=== PATIENT | female | born 1985 | race Caucasian/White ===

== ENCOUNTER 2019-08-04 14:26 | Emergency (ER) | payer OTHER, SELFPAY ==
[2019-08-04 14:28] VITALS: BP 128/73; PULSE 36; RESP 20; TEMP 36.3; O2SAT 100
--- NOTE | 2019-08-04 14:39 | ED.URI ---
HPI - URI/Sore Throat General Chief Complaint: Chest Pain Stated Complaint: dizzy/lightheaded/sob Time Seen by Provider: 08/04/19 14:45 Source: patient and RN notes reviewed Mode of arrival: ambulatory Limitations: no limitations History of Present Illness HPI Narrative: 34 old female presents with concern for 1 week history of generalized weakness, fatigue, difficulty taking a full breath, headache, dizziness, not been able to stand very long. She difficulty taking a deep breath. She denies any significant medical history, and a family history of heart disease. She denies fever, chills, body aches, sweats. Denies rhinorrhea, nasal congestion, sore throat. Patient denies taking any recent new medications, denies ingesting any unusual substances. Reports decreased appetite. Related Data Home Medications Medication Instructions Recorded Confirmed No Home Medications 08/04/19 08/04/19 Allergies Allergy/AdvReac Type Severity Reaction Status Date / Time latex Allergy Unknown Rash Verified 08/26/16 15:23 Review of Systems Review of Systems: Narrative: CONSTITUTIONAL: Denies malaise, chills, sweats, or fever. Reports fatigue, generalized weakness EYES: Denies visual changes, redness, or discharge. ENT: Denies rhinorrhea, congestion, sinus pain, otalgia or sore throat. CARDIOVASCULAR: Denies chest pain, palpitations, or edema. RESPIRATORY: Denies cough or dyspnea. Reports difficult taking a full breath GASTROINTESTINAL: Denies abdominal pain, nausea, vomiting, diarrhea MUSCULOSKELETAL: Denies myalgia. NEUROLOGIC: Denies numbness, weakness. Reports dizziness and headache. All systems reviewed & are unremarkable except as noted in HPI and below PMFSH Family History Family History (Updated 07/03/16 @ 10:55 by DOCTOR UNKNOWN) Father Family history of alcoholism Social History Social History Smoking status: Never smoker Alcohol intake: never Comments At time of signature, agree with nursing past medical, surgical, social and family history. There is no relevant family history pertinent to the presenting complaint Exam Narrative: Exam Narrative: GENERAL: Well-appearing, well-nourished, and in no acute distress. HEAD: Normocephalic, atraumatic. EYES: PERRLA, conjunctivae clear ENT: Nares clear. Mucous membranes moist. NECK: Supple. CHEST: No respiratory distress. Clear to auscultation. No bony deformities, no asymmetry. Speaks in full sentences. HEART: Slow heart rate. No murmur heard. Normal peripheral pulses. Capillary refill less than 3 seconds ABDOMEN: Soft, nontender, nondistended, no palpable masses. SKIN: Warm, dry, no rash. NEURO: Alert and oriented x3. No focal deficits. PSYCH: Normal mood and affect Course Course Emergency Course: 1444: Patient placed on continuous BP, heart rate, O2 saturation monitoring. IV placed. Patient awake, alert, talking. Patient is aware of, understands and agrees to be transferred to emergency department. Portions of this record may have been created with voice recognition software Vital Signs Vital signs: Reviewed. Transfer Transfered to: [facility]: [facility] Transfer rationale: Bradycardia Accepting physician: Dr. Wylie Transfer comments: Patient stable at time of departure MDM - URI/Sore Throat MDM Narrative Medical decision making narrative: Patient's exam and vital signs warrant further evaluation in the emergency department patient agrees to be transferred to the emergency department via EMS ECG Data EKG #1: ECG completion date: 08/04/19 ECG completion time: 14:46 Prior ECG tracings: not available for review EKG Interpretation: bradycardia and sinus rhythm Pacemaker model: Rate 39, AR interval 187, QRS duration 92, QT 503, QTc 429 Critical Care Time Critical Care Time Critical Care Time: Yes Total Critical Care Time: 15 Discharge Plan Discharge Clinical Impression: Bradycardia Patient Dispos
--- NOTE | 2019-08-04 14:46 | ECG_ITS ---
SINUS BRADYCARDIA ABNORMAL ECG Electronically Signed On 08-04-2019 16:05:41 CDT by Reynold Powers D.O. NO PREVIOUS ECG AVAILABLE FOR COMPARISON [facility]
[2019-08-04 14:51] VITALS: BP 148/88; PULSE 39; RESP 16; O2SAT 100
[2019-08-04 15:02] VITALS: BP 151/80; PULSE 40; RESP 20; O2SAT 100
--- NOTE | 2019-08-04 15:11 | PC.NURSE ---
during triage pulse low taken to room 1 put on monitor. ekg done
== END 2019-08-04 15:02 | disposition short-term general hospital (02) ==
PROVIDERS: Emergency Provider Nurse Practitioner
DX: R00.1 Bradycardia, unspecified (principal); Z98.84 Bariatric surgery status
CPT/HCPCS: 93005; 99215; G0463

== ENCOUNTER 2019-08-04 15:20 | Observation (INO) | payer OTHER, SELFPAY ==
[2019-08-04] VITALS (9 sets, daily range): BP systolic 87–148; BP diastolic 45–95; PULSE 34–51; RESP 14–18; TEMP 36.1–36.5; O2SAT 99–100; BMI 28.0
--- NOTE | ~2019-08-04 | CT_ITS ---
EXAMINATION: CTA chest PE protocol DATE: 08/04/2019 17:15 INDICATION: Shortness of breath TECHNIQUE: Computed tomography angiography (CTA) of the chest was performed with 100 mL Omnipaque-350 intravenous contrast timed to evaluate the pulmonary arteries. Coronal maximum intensity projection 3D-reconstructions were created by the technologist. The dose-length product (DLP) was 284.51 mGy-cm. Automated exposure control and iterative reconstruction technique were employed. COMPARISON: None. FINDINGS: The pulmonary arteries are well-opacified. No pulmonary embolism is identified. The lungs a re free of acute opacities. There is no pleural effusion or pneumothorax. No pathologically enlarged thoracic lymph nodes are identified. The heart size is normal. IMPRESSION: 1. No pulmonary embolism or acute cardiopulmonary abnormality. Reviewed, dictated and finalized at location A.
--- NOTE | ~2019-08-04 | XR_ITS ---
EXAMINATION: XR chest 2V DATE: 08/04/2019 16:10 INDICATION: Bradycardia. Fatigue. Pain on inspiration. TECHNIQUE: frontal and lateral views of the chest were obtained. COMPARISON: Chest radiograph dated 05/27/2005 FINDINGS: The lungs remain clear with no focal airspace opacities, pulmonary edema, pleural effusion or pneumot horax. The cardiomediastinal silhouette is normal. Visualized bones and soft tissues are unremarkable . IMPRESSION: 1. No acute cardiopulmonary disease. Reviewed, dictated and finalized at location A.
--- NOTE | 2019-08-04 15:28 | ECG_ITS ---
Measurements Intervals [place] Rate: 34 P: 30 [place]: 172 QRS: 27 QRSD: 98 T: 29 QT: 512 QTc: 390 Interpretive Statements SINUS BRADYCARDIA ABNORMAL ECG Electronically Signed On 08-05-2019 7:15:45 CDT by Reynold Powers D.O.
--- NOTE | 2019-08-04 15:40 | ED.ARRPALP ---
HPI - Arrhythmia/Palpitations General Chief Complaint: Arrhythmia/Palpitations Stated Complaint: WEAKNESS/SB Time Seen by Provider: 08/04/19 15:26 Source: patient Mode of arrival: ambulatory Limitations: no limitations Related Data Home Medications Medication Instructions Recorded Confirmed No Home Medications 08/04/19 08/04/19 Allergies Allergy/AdvReac Type Severity Reaction Status Date / Time latex Allergy Unknown Rash Verified 08/26/16 15:23 COUNT INCLUDES THE [facility] Family History Family History (Updated 07/03/16 @ 10:55 by DOCTOR UNKNOWN) Father Family history of alcoholism Social History Social History Smoking status: Never smoker Alcohol intake: never Gender identity (if verbalized by the patient): Female Course Vital Signs Vital signs: Vital Signs Pulse Rate 34 L 08/04/19 15:27 Respiratory Rate 14 08/04/19 15:27 Blood Pressure 148/82 H 08/04/19 15:27 Pulse Oximetry 100 08/04/19 15:27 Pulse Rate 34 L 08/04/19 15:27 Respiratory Rate 14 08/04/19 15:27 Blood Pressure 148/82 H 08/04/19 15:27 Pulse Oximetry 100 08/04/19 15:27 Discharge Plan Discharge Prescriptions: No Action No Home Medications RF: 0
--- NOTE | 2019-08-04 15:48 | ED.DIZZY ---
HPI - Dizziness General Chief Complaint: Arrhythmia/Palpitations Stated Complaint: WEAKNESS/SB Time Seen by Provider: 08/04/19 15:26 Source: patient Mode of arrival: EMS Limitations: no limitations History of Present Illness HPI Narrative: A 34 y/o female presents to the ED, via EMS, with c/o dizziness. Pt states that she became dizzy and lightheaded 1 week ago and it became severe today. She notes that she was at urgent care today and was told she had a low heart rate and was sent to the ED. Pt reports fatigue, generalized weakness, SOB, and CP with deep breaths, but denies BLE edema, fever, N/V, and ABD pain. The generalized weakness is aggravated with exertion and the SOB is aggravated when lying flat. She has a PMHx of DVT and PE. MD elicited complaint: dizziness Onset (ago): week(s) (1) Timing: constant (Worsened today) Severity: severe Associated symptoms: chest pain (With deep breaths), shortness of breath, weakness (Generalized) and other (Fatigue, lightheadedness) Related Data Home Medications Medication Instructions Recorded Confirmed Adults Multivitamin 1 tab-cap PO DAILY 08/04/19 08/05/19 Allergies Allergy/AdvReac Type Severity Reaction Status Date / Time latex Allergy Intermediate Rash Verified 08/04/19 15:46 Review of Systems Review of Systems: All systems reviewed & are unremarkable except as noted in HPI and below Constitutional: Constitutional: Reports fatigue, Denies fever(s) and Reports weakness (Generalized) Cardiovascular: Cardiovascular: Reports chest pain (With deep breaths), Denies leg edema (BLE) and Reports lightheadedness Respiratory: Respiratory: Reports dyspnea Gastrointestinal: Gastrointestinal: Denies abdominal pain, Denies nausea and Denies vomiting Neurologic: Reports dizziness PMFSH Past Medical History Medical History (Updated 08/05/19 @ 13:10 by Polly Epstein MD) Anemia Asthma DVT (deep venous thrombosis) Head ache Ovarian cyst Pulmonary embolism Surgical History Surgical History (Updated 08/04/19 @ 15:46 by Michelle Harris) History of anterior cruciate ligament surgery History of gastric surgery Gastric sleeve Family History Family History Father Family history of alcoholism Social History Social History Smoking status: Never smoker Alcohol intake: never Substance use: never Gender identity (if verbalized by the patient): Female Spiritual care concerns: No Agree to blood products: Yes Exam Const: General: no acute distress and well developed Orientation/consciousness: oriented to person, oriented to place, oriented to time and patient oriented x3 HENMT: Head: normocephalic Ears: external ears normal General nose exam: Normal external nose present Eyes: General: appearance normal, both eyes and all related structures Conjunctivae: conjunctivae normal Neck: Neck: normal visual inspection and full ROM Chest: Chest palpation & inspection: normal inspection of the chest and no tenderness Resp: Effort & Inspection: normal respiratory effort Auscultation: clear to auscultation bilaterally Cardio: Rate: bradycardic Rhythm: regular rhythm GI: GI Palp: No abdominal tenderness and Yes Soft to palpation Skin: General skin exam: normal color and turgor normal Neuro: General: oriented to person, oriented to place, oriented to time and patient oriented x3 Cognition (Neuro): normal cognition Extrem: General: normal to inspection, full ROM and no pedal edema Psych: Appearance: grossly normal Mental Status: mental status grossly normal Affect: normal affect Course Consultations Consultation #1: Discussed with Dr. Johnston, who recommends admitting to IMU and have Atropine at bedside and administer atropine prn for HR < 30. Date: 08/04/19 Time: 17:14 Vital Signs Vital signs: Vital Signs Pulse Rate 34 L 08/04/19 15:27 Respiratory Rate 1
[2019-08-04 15:59] LABS: Basophils Absolute Auto 0.1 K/mm3 (0.0-0.1); Eosinophils Absolute Auto 0.2 K/mm3 (0-0.3); Hemoglobin 12.6 g/dL (12.0-15.0); Immature Granulocyte Absolute 0.01 K/mm3 (0.00-0.031); Immature Granulocyte Percent A 0.2 % (0-0.5); Lymphocytes Absolute Auto 2.01 K/mm3 (0.9-3.2); Lymphocytes Percent Auto 38.3 % (18.3-44.2); Mean Corpuscular HGB Conc 32.3 g/dl (32-36); Mean Corpuscular Volume 83.7 fl (80-100); Mean Platelet Volume 12.9 fl (7.4-10.4); Monocytes Absolute Auto 0.3 K/mm3 (0.1-0.6); Monocytes Percent Auto 5.7 % (2.6-8.5); Neutrophils Absolute Auto 2.7 K/mm3 (1.3-6.7); Neutrophils Percent Auto 51.8 % (45.5-73.1); Nucleated Red Blood Cells Perc 0.4 % (0.0-0.2); Platelet Count Result 174 k/mm3 (150-375); Red Blood Count 4.66 M/mm3 (4.2-5.4); Red Cell Distribution Width 13.7 % (11.5-14.5); White Blood Count 5.3 K/mm3 (4.5-10.0)
[2019-08-04 16:15] LABS: Blood Urea Nitrogen 14 mg/dL (7-17); Calcium 9.5 mg/dL (8.4-10.2); Carbon Dioxide 23 mmol/L (22-30); Chloride 108 mmol/L (98-107); Estimated CRCL calculation 137 ml/min; Estimated Glomerular Filt Rate > 60; Glucose 111 mg/dL (65-105); Sodium 138 mmol/L (137-145)
[2019-08-04 16:21] LABS: D Dimer 0.57 ug/mL (<0.48)
[2019-08-04 16:46] LABS: NT Pro B Type Natriuretic Pept 427 PG/ML (5-100)
[2019-08-04 16:52] LABS: Troponin I < 0.012 ng/mL (0.000-0.034)
[2019-08-04 16:56] LABS: Add Urine Microscopic? NO; Appearance Urine Clear (Clear); Bilirubin Urine Negative (Negative); Blood Urine Negative (Negative); Color Urine Colorless (Yellow); Glucose Urine UA Negative (Negative); Ketones Urine Negative (Negative); Leukocyte Esterase Ur Negative LEU/UL (Negative); Mucus Urine Rare /lpf; Nitrate Urine Negative (Negative); Protein Urine Negative (Negative); Specific Grav Ur 1.009 (1.001-1.035); Squamous Epithelial Cell Urine Rare /hpf (Few); Urobilinogen Urine Negative mg/dL (<2.0); WBC Urine 0-3 /hpf
[2019-08-04 17:50] LABS: Amphetamine Screen Urine Negative (Negative); Barbiturate Screen Urine Negative (Negative); Benzodiazepines Screen Urine Negative (Negative); Cannabinoid Screen Urine Negative (Negative); Cocaine Screen Urine Negative (Negative); Methadone Screen Urine Negative (Negative); Opiate Screen Urine Negative (Negative); Phencyclidine Screen Urine Negative (Negative)
[2019-08-04 19:50] LABS: Troponin I < 0.012 ng/mL (0.000-0.034)
--- NOTE | 2019-08-04 20:10 | ADMGEN ---
This patient, Azucena Moe, was admitted to IMU Room 200-01. Patient/family oriented to hospital policies and general routines including ID bracelet, bed and alarms, visiting hours, pain management, procedures, bathroom and other care routines, personal items, smoking policy, room service/diet, and visiting hours. Valuables list has been completed. Information on how to activate the Rapid Response Team has been discussed. Patient/Family are encouraged to report perceived risks to care and to ask questions if they do not understand what they are told or what they should do.
--- NOTE | 2019-08-04 21:43 | PC.NURSE ---
Spoke with Dr. Johnston regarding blood pressure and patient being Asymptomatic. Continue to monitor. If patient becomes symptomatic, or if blood pressure drops to an unsatisfactory level, call Dr. Johnston. PRN atropine if needed.
[2019-08-04 22:41] LABS: Troponin I < 0.012 ng/mL (0.000-0.034)
[2019-08-05] VITALS (9 sets, daily range): BP systolic 91–110; BP diastolic 40–64; PULSE 45–60; RESP 12–22; TEMP 36.3–36.9; O2SAT 100
--- NOTE | 2019-08-05 13:26 | PM.IMHP ---
H&P: HPI History of Present Illness Chief complaint: bradycardia Narrative: Azucena Moe is a 34 year old female without any prior history of cardiac problems was admitted to our service last evening after being seen in the emergency room because of bradycardia. The patient's stay works at local [employer] and was having symptoms of weakness and lightheadedness at work and so she elected to leave work and go to a local urgent care center for evaluation. When they took her vitals they found her to be bradycardic and called an ambulance and took her to the emergency room for evaluation and admission. In the emergency room she was found to be in a sinus bradycardia. All the other than sinus bradycardia her electrocardiogram was totally normal. It is important to note the patient has never had a gavin syncopal episode she denies any sense of palpitations orthopnea PND edema or any chest pain. She has been in generally good health in recent years. She did have a problem earlier in life with morbid obesity had a gastric sleeve operation done in [place] about 5 years ago and lost considerable amount of weight other than that she does not report any ongoing medical problems. Specifically T she denies hypertension diabetes or dyslipidemia. There is no family history of premature coronary artery disease. Since being admitted to the floor she has been ill in bed rest and NPO because someone made the comment that she might need a cardiac pacemaker device. Her telemetry since being on the floor shows sinus rhythm/sinus bradycardia heart rates vary between the mid 50s and as low as the high 30s. There have been no examples of abnormal AV conduction or other pathological Teddy arrhythmias. Review of Systems Review of Systems: All systems reviewed & are unremarkable except as noted in HPI and below [facility] Past Medical History Medical History (Updated 08/05/19 @ 13:10 by Polly Epstein MD) Anemia Asthma DVT (deep venous thrombosis) Head ache Ovarian cyst Pulmonary embolism Surgical History Surgical History (Updated 08/04/19 @ 15:46 by Michelle Harris) History of anterior cruciate ligament surgery History of gastric surgery Gastric sleeve Family History Family History Father Family history of alcoholism Social History Social History Smoking status: Never smoker Alcohol intake: never Substance use: never Gender identity (if verbalized by the patient): Female Spiritual care concerns: No Agree to blood products: Yes Meds Home Medications and Allergies Home Medications Medication Instructions Recorded Confirmed Type Adults Multivitamin 1 tab-cap PO DAILY 08/04/19 08/05/19 History Allergies Allergy/AdvReac Type Severity Reaction Status Date / Time latex Allergy Intermediate Rash Verified 08/04/19 15:46 Vital Signs Vital Signs - 24 hr 08/04/19 15:27 08/04/19 16:51 08/04/19 18:30 Temperature Pulse Rate 34 L 35 L 36 L Respiratory Rate 14 14 18 Blood Pressure 148/82 H 140/72 125/95 H Pulse Oximetry 100 99 100 08/04/19 19:51 08/04/19 20:00 08/04/19 20:10 Temperature 36.1 C L Pulse Rate 44 L 44 L 41 L Respiratory Rate 14 16 Blood Pressure 119/75 87/50 L Pulse Oximetry 100 100 08/04/19 20:12 08/04/19 21:28 08/04/19 22:00 Temperature 36.5 C Pulse Rate 42 L 49 L 51 L Respiratory Rate 18 Blood Pressure 125/75 99/45 L Pulse Oximetry 100 08/05/19 00:00 08/05/19 00:14 08/05/19 02:00 Temperature 36.3 C L Pulse Rate 45 L 48 L 51 L Respiratory Rate 16 Blood Pressure 108/40 L Pulse Oximetry 100 08/05/19 03:56 08/05/19 04:00 08/05/19 06:00 Temperature 36.5 C Pulse Rate 49 L 46 L 46 L Respiratory Rate 22 H Blood Pressure 96/64 L Pulse Oximetry 100 08/05/19 08:00 08/05/19 10:00 08/05/19 12:00 Temperature 36.7 C Pulse Rate 50 L 57 L 53 L Respir
--- NOTE | 2019-08-05 13:31 | PM.DS ---
DS: Summary Hospital Course Reason for hospitalization: Observation because of sinus bradycardia Hospital Course: This is a 34-year-old lady who is sent to the emergency room from an urgent care center by ambulance because of bradycardia. She presented her to that institution with some dizziness which was occurring while she was at work. She has no history of near-syncope or gavin syncope. The patient was at times rather bradycardic with heart rates in the upper 30s generally speaking sinus rhythm was seen in the hospital with heart rates in the 40s and 50s. He had no evidence of AV node dysfunction and no other arrhythmias that were noted on telemetry. Patient was felt to be a stable candidate for discharge and I did not recommend implanting a pacemaker device in her under the circumstances. She did have a mild systolic murmur on examination is suggestive of some mitral valve regurgitation and so I will arrange echocardiographic evaluation of this in the office and then follow up with me following that exam. Time Spent with Patient Time attestation: Total time spent providing and/or coordinating discharge services: Time spent: Greater than 30 minutes Exam Const: General: comfortable and no acute distress HENMT: Mouth: Yes moist mucous membranes Eyes: Sclera: sclerae normal Pupils: Equal, round and reactive pupils present Neck: Neck: supple and no JVD Thyroid: thyroid normal Resp: Effort & Inspection: normal respiratory effort Auscultation: clear to auscultation bilaterally Cardio: Rate: regular rate Rhythm: regular rhythm Other: No gallop no rub soft grade 2 systolic murmur is audible at the apex GI: GI Palp: Yes Soft to palpation Auscultation: normal bowel sounds Skin: General skin exam: normal color Neuro: General: gait normal Extrem: General: normal to inspection DS: Data Data Completed and Pending Labs on day of discharge: Labs from last 24 hours 08/04/19 08/04/19 08/04/19 22:11 19:18 17:22 WBC RBC Hgb Hct MCV MCH MCHC RDW Plt Count MPV Immature Gran % (Auto) Neut % (Auto) Lymph % (Auto) Cameron % (Auto) Eos % (Auto) Baso % (Auto) Lymph # (Auto) [place] # (Auto) Eos # (Auto) Baso # (Auto) Abs Immat Gran (auto) Absolute Neuts (auto) Absolute Nucleated RBC Nucleated RBC % D-Dimer Sodium Potassium Chloride Carbon Dioxide BUN Creatinine Estim Creat Clear Calc Estimated GFR Glucose Calcium Troponin I < 0.012 < 0.012 NT-Pro-B Natriuret Pep TSH Urine Color Urine Appearance Urine pH Ur Specific [place] Urine Protein Urine Glucose (UA) Urine Ketones Ur Blood (Man) Urine Nitrate Urine Bilirubin Urine Urobilinogen Leukocyte Esterase Rfl Urine WBC Ur Squamous Epith Cells Urine Mucus Urine Opiates Screen Negative Urine Methadone Screen Negative Ur Barbiturates Screen Negative Ur Phencyclidine Scrn Negative Ur Amphetamine Screen Negative U Benzodiazepines Scrn Negative Urine Cocaine Screen Negative U Cannabinoids Screen Negative 08/04/19 08/04/19 08/04/19 16:44 15:52 15:52 WBC RBC Hgb Hct MCV MCH MCHC RDW Plt Count MPV Immature Gran % (Auto) Neut % (Auto) Lymph % (Auto) [place] % (Auto) Eos % (Auto) Baso % (Auto) Lymph # (Auto) [place] # (Auto) Eos # (Auto) Baso # (Auto) Abs Immat Gran (auto) Absolute Neuts (auto) Absolute Nucleated RBC Nucleated RBC % D-Dimer 0.57 H Sodium Potassium Chloride Carbon Dioxide BUN Creatinine Estim Creat Clear Calc Estimated GFR Glucose Calcium Troponin I Cancelled NT-Pro-B Natriuret Pep TSH Urine Color Colorless Urine Appearance Clear Urine pH 7.0 Ur Specific [place] 1.009 Urine Protein Negative Urine Glucose (UA) Negative
== END 2019-08-05 14:31 | disposition home or self-care (01) ==
LOC: ANHED 18:16 → ANHIMU 18:48
PROVIDERS: Admitting Provider Internal Medicine Cardiovascular Disease; Emergency Provider Emergency Medicine; Visit Provider Specialist
DX: R00.1 Bradycardia, unspecified (principal); R01.1 Cardiac murmur, unspecified; R06.02 Shortness of breath; Z86.711 Personal history of pulmonary embolism; Z86.718 Personal history of other venous thrombosis and embolism; Z98.84 Bariatric surgery status
CPT/HCPCS: 36415; 71046; 71275; 80048; 80307; 81003; 81025; 83880; 84443; 84484; 85025; 85380; 93005; 99285; G0378; J0461; J7030; Q9967

== ENCOUNTER 2021-06-27 16:15 | Emergency (ER) | payer OTHER, SELFPAY ==
[2021-06-27 16:33] VITALS: BP 115/81; PULSE 64; RESP 18; TEMP 36.4; O2SAT 100
--- NOTE | 2021-06-27 16:38 | ED.SKABFB ---
HPI - Skin/Abscess/Foreign Bdy General Chief complaint: Skin/Abscess/Foreign Body Stated complaint: rash Time Seen by Provider: 06/27/21 16:38 Source: patient Mode of arrival: ambulatory Limitations: no limitations History of Present Illness HPI narrative: 36-year-old female presenting for complaint of itching and rash over her body surface for 3 days. She states she developed the rash about 15 minutes after receiving her first Covid vaccination. She has been using hydrocortisone and [id number] antihistamines with minimal relief. She denies shortness of breath, chest pain, lip/tongue/throat swelling, drooling. Denies any other changes to lotion, detergent, soap etc. MD complaint: rash Related Data Home Medications Medication Instructions Recorded Confirmed Advair HFA 06/27/21 albuterol 06/27/21 bupropion HCl 300 mg PO DAILY 06/27/21 06/27/21 Allergies Allergy/AdvReac Type Severity Reaction Status Date / Time latex Allergy Intermediate Rash Verified 06/27/21 16:38 Review of Systems Review of Systems: CONSTITUTIONAL: Denies body aches, fever, chills, or sweats. EYES: Denies visual changes, redness, or discharge. ENT: Denies rhinorrhea, congestion, sore throat, or otalgia. CARDIOVASCULAR: Denies chest pain, palpitations, or edema. RESPIRATORY: Denies cough or dyspnea. GASTROINTESTINAL: Denies abdominal pain, nausea, vomiting, or diarrhea. GENITOURINARY: Denies dysuria or hematuria. SKIN: endorses rash, itching MUSCULOSKELETAL: Denies back pain, joint pain, or myalgia. NEUROLOGIC: Denies headache, numbness, tingling, or weakness. PSYCH: Denies depression or anxiety. [facility] Past Medical History Medical History (Updated 06/27/21 @ 16:41 by Madison Vargas APRN) Anemia Asthma DVT (deep venous thrombosis) Head ache Ovarian cyst Pulmonary embolism Surgical History Surgical History History of anterior cruciate ligament surgery History of gastric surgery Gastric sleeve Family History Family History Father Family history of alcoholism Social History Social History Smoking status: Never smoker Alcohol intake: never Substance use: never Gender identity (if verbalized by the patient): Female Spiritual care concerns: No Agree to blood products: Yes Comments At time of signature, I have reviewed and agree with nursing past medical, surgical, social and family history unless otherwise noted. Please see nursing chart for further information. There is no relevant family history pertinent to the presenting complaint Exam Narrative: GENERAL: Well-appearing, well-nourished, and in no acute distress. HEAD: Normocephalic, atraumatic. EYES: PERRLA, conjunctivae clear, and EOMI. ENT: Mucous membranes moist. Oropharynx without edema, erythema or lesions. NECK: Supple. No lymphadenopathy CHEST: Clear to auscultation. No respiratory distress. HEART: Regular rate and rhythm. SKIN: Warm, dry. Scattered Patches of erythematous circular lesions c/w urticaria over trunk and arms, surrounding excoriation from scratching; no lip/tongue swelling NEURO: Alert and oriented x3. PSYCH: Normal mood and affect Course Course Emergency Course: Patient is aware of diagnosis, understands and agrees to treatment plan. Anticipatory guidance given. Patient agrees to follow-up as directed and is aware of reasons to seek care at the emergency department. Portions of this record may have been created with voice recognition software Level of Care: Express Care Visit Vital Signs Vital signs: Vital Signs Temperature 97.6 F 06/27/21 16:33 Pulse Rate 64 06/27/21 16:33 Respiratory Rate 18 06/27/21 16:33 Blood Pressure 115/81 06/27/21 16:33 Pulse Oximetry 100 06/27/21 16:33 Temperature 97.6 F 06/27/21 16:33 Pulse R
== END 2021-06-27 16:45 | disposition home or self-care (01) ==
PROVIDERS: Emergency Provider Nurse Practitioner Family; PCP Physician Assistant
DX: L50.9 Urticaria, unspecified (principal); J45.909 Unspecified asthma, uncomplicated; Z86.718 Personal history of other venous thrombosis and embolism; Z86.711 Personal history of pulmonary embolism; Z98.84 Bariatric surgery status
CPT/HCPCS: 99213; G0463

== ENCOUNTER 2022-02-06 17:09 | Emergency (ER) | payer BC, SELFPAY ==
[2022-02-06 17:19] VITALS: BP 104/54; PULSE 57; RESP 18; TEMP 36.4; O2SAT 100
[2022-02-06 17:20] VITALS: BP 104/54; PULSE 57; RESP 18; TEMP 36.4; O2SAT 100
--- NOTE | 2022-02-06 17:22 | ED.SKABFB ---
HPI - Skin/Abscess/Foreign Bdy General Chief complaint: Skin/Abscess/Foreign Body Stated complaint: rash Time Seen by Provider: 02/06/22 17:23 Source: patient, RN notes reviewed and old records reviewed Mode of arrival: ambulatory Limitations: no limitations History of Present Illness HPI narrative: 36-year-old female presents to the [facility] with complaints of a rash to her back, posterior legs and abdomen. Patient states that started the night she got her flu shot, January 27 Having a similar reaction to when she had her COVID shot several months ago. Patient denies any breathing difficulties. No lip or tongue swelling. Has tried oatmeal baths, Benadryl with no relief. Also has tried hydrocortisone cream Related Data Home Medications Medication Instructions Recorded Confirmed bupropion HCl 300 mg 24 hr tablet, 300 mg PO DAILY 06/27/21 02/06/22 extended release Allergies Allergy/AdvReac Type Severity Reaction Status Date / Time latex Allergy Intermediate Rash Verified 02/06/22 17:18 ferumoxytol [From Feraheme] AdvReac Severe Stopped Verified 02/06/22 17:49 Breathing Review of Systems Review of Systems: All systems reviewed & are unremarkable except as noted in HPI and below Constitutional: Constitutional: Reports no additional constitutional complaints, Denies chills and Denies fever(s) Eyes: Eyes: Reports no additional eye complaints ENT: Reports system reviewed and no additional complaints, except as documented Cardiovascular: Cardiovascular: Reports no additional cardiovascular complaints Respiratory: Respiratory: Reports no additional respiratory complaints Gastrointestinal: Gastrointestinal: Reports no additional gastrointestinal complaints Musculoskeletal: Musculoskeletal: Reports no additional musculoskeletal complaints Integumentary/Breasts: Skin/Breast: Reports as per HPI and Reports rash Neurologic: Reports system reviewed and no additional complaints, except as documented Psychiatric: Psychiatric: Reports no additional psychiatric complaints Allergic/Immunologic: Allergic/Immunologic: Reports no additional allergic/immunologic complaints [facility] Past Medical History Medical History Anemia Asthma DVT (deep venous thrombosis) Head ache Ovarian cyst Pulmonary embolism Surgical History Surgical History History of anterior cruciate ligament surgery History of gastric surgery Gastric sleeve Family History Family History Father Family history of alcoholism Social History Social History Smoking status: Never smoker Alcohol intake: never Substance use: never Gender identity (if verbalized by the patient): Female Spiritual care concerns: No Agree to blood products: Yes Comments At the time of my signature, I reviewed and agree with the nursing past medical, surgical, social, and family history. There is no relevant family history pertinent to the patient complaint. Exam Const: General: healthy appearing, no acute distress and alert Nutritional Appearance: well nourished Orientation/consciousness: patient oriented x3 Limitations: no limitations HENMT: Head: normal to inspection Ears: external ears normal General nose exam: Normal external nose present and Normal nares present Face and sinus: normal facial exam Mouth: Yes Normal oral and palatal mucosa present, Yes lip normal and Yes moist mucous membranes Throat: posterior oropharynx normal and uvula midline Eyes: General: appearance normal, both eyes and all related structures Pupils: Equal, round and reactive pupils present Neck: Neck: normal visual inspection, no lymphadenopathy and no meningeal signs Chest: Chest palpation & inspection: normal inspection of the chest Resp: Effor
== END 2022-02-06 17:30 | disposition home or self-care (01) ==
PROVIDERS: Emergency Provider Nurse Practitioner; PCP Physician Assistant
DX: L50.9 Urticaria, unspecified (principal)
CPT/HCPCS: 99213; G0463

== ENCOUNTER 2023-01-29 18:02 | Emergency (ER) | payer BC, SELFPAY | END 2023-01-29 18:03 | disposition left against medical advice (07) | PROVIDERS: Emergency Provider Nurse Practitioner Family | DX: Z53.21 Procedure and treatment not carried out due to patient leaving prior to being seen by health care provider (principal) | CPT/HCPCS: 99199 ==

== ENCOUNTER → 2023-01-31 08:59 | Outpatient (CLI) | payer BC, SELFPAY ==
--- NOTE | ~2023-01-31 | US_ITS ---
US OB transvaginal DATE: 01/31/2023 09:24 INDICATION: confirmation TECHNIQUE: Transvaginal pelvic ultrasound examination COMPARISON: None FINDINGS: Live king intrauterine gestation. pole and yolk sac are identified. heart rate of 133 bpm. Citrus-rump length measures 0.79 cm consistent with estimated gestational age of 6 we eks 5 days +/- 4 days, PRIMO of 09/21/2023, compared to 09/2023 by LMP. IMPRESSION: Estimated gestational age of 6 weeks 5 days +/- 4 days; PRIMO: 09/21/2023 Reviewed, dictated and finalized at [facility]. Reviewed, dictated and finalized at [facility]. IMPRESSION: Estimated gestational age of 6 weeks 5 days +/- 4 days; PRIMO: 09/21/19 24
== END ==
PROVIDERS: PCP Physician Assistant
DX: Z32.01 Encounter for pregnancy test, result positive (principal)
CPT/HCPCS: 76817

== ENCOUNTER 2023-02-11 17:24 | Emergency (ER) | payer BC, MEDICAID, SELFPAY ==
[2023-02-11 17:30] VITALS: BP 117/69; PULSE 66; RESP 18; TEMP 36.1; O2SAT 100
[2023-02-11] MEDS: SODIUM CHLORIDE 0.9% IV 1,000 ML 999 ML IV CONT ×2 (18:48→19:51)
[2023-02-11] MEDS: METOCLOPRAMIDE HCL INJ 10 MG/2 ML VIAL IV PUSH (18:53)
--- NOTE | 2023-02-11 19:06 | ED.NAVMDI ---
HPI - Nausea/Vomiting/Diarrhea General Chief complaint: Nausea/Vomiting/Diarrhea Stated complaint: - N/V Time Seen by Provider: 02/11/23 17:41 Source: patient Mode of arrival: ambulatory Limitations: no limitations History of Present Illness HPI Narrative: Patient is a 37 y/o female who presents to the ED with c/o N/V. Patient is and currently 8weeks gestation via IVF. She has had confirmed IUP and is currently following with a fertility clinic in [place]. She plans to follow-up with [facility] with [facility]. Patient reports she has been feeling increasingly nauseous over the last 3 weeks. Since last , she has been unable to keep down any food or drink. Reporting persistent vomiting. She was prescribed Zofran and Reglan, but has been unable to keep these down. She denies fevers, abdominal pain, vaginal bleeding, leakage of fluid, urinary complaints, diarrhea, constipation, cough or cold symptoms. Related Data Home Medications Medication Instructions Recorded Confirmed bupropion HCl 300 mg 24 hr tablet, 300 mg PO DAILY 06/27/21 02/06/22 extended release Allergies Allergy/AdvReac Type Severity Reaction Status Date / Time latex Allergy Intermediate Rash Verified 02/06/22 17:18 ferumoxytol [From Feraheme] AdvReac Severe Stopped Verified 02/06/22 17:49 Breathing Review of Systems Review of Systems: CONSTITUTIONAL: Denies fever, chills, or sweats. ENT: Denies rhinorrhea, congestion, sore throat. CARDIOVASCULAR: Denies chest pain. RESPIRATORY: Denies cough or dyspnea. GASTROINTESTINAL: See HPI. GENITOURINARY: Denies vaginal bleeding, dysuria or hematuria. SKIN: Denies rash or itching. MUSCULOSKELETAL: Denies back pain, joint pain, or myalgia. All systems reviewed & are unremarkable except as noted in HPI and below PMFSH Past Medical History Medical History Anemia Asthma DVT (deep venous thrombosis) Head ache Ovarian cyst Pulmonary embolism Surgical History Surgical History History of anterior cruciate ligament surgery History of gastric surgery Gastric sleeve Family History Family History Father Family history of alcoholism Social History Social History Smoking status: Never smoker Alcohol intake: never Substance use: never Gender identity (if verbalized by the patient): Female Spiritual care concerns: No Agree to blood products: Yes Exam Narrative: GENERAL: Well appearing, well-nourished, non-toxic, in no acute distress. HEAD: Normocephalic, atraumatic. NECK: Supple. No adenopathy, no masses. RESPIRATORY: Airway patent, respirations nonlabored. Clear to auscultation bilaterally, no rales, rhonchi, wheezing. CARDIOVASCULAR: Regular rate and rhythm without murmurs, rubs, or gallops. Radial pulses 2+ and equal bilaterally. ABDOMINAL: Soft, no tenderness throughout abdomen, nondistended, no hepatosplenomegaly. Normoactive BS. MUSCULOSKELETAL: Moves all extremities. Strength/ROM intact without gross deformities. SKIN: Warm, dry, normal color. No rashes. NEURO: A&O X3. Speech clear. Cranial nerves II-XII grossly intact. Steady gait. No ataxic movements. PSYCHIATRIC: Appropriate mood and affect. Normal interaction. Course Vital Signs Vital signs: Vital Signs Temperature 96.9 F L 02/11/23 17:30 Pulse Rate 66 02/11/23 17:30 Respiratory Rate 18 02/11/23 17:30 Blood Pressure 117/69 02/11/23 17:30 Pulse Oximetry 100 02/11/23 17:30 Oxygen Delivery Room Air 02/11/23 17:30 Temperature 96.9 F L 02/11/23 17:30 Pulse Rate 66 02/11/23 17:30 Respiratory Rate 18 02/11/23 17:30 Blood Pressure 117/69 02/11/23 17:30 Pulse Oximetry 100 02/11/23 17:30 Oxygen Delivery Samia
[2023-02-11 19:07] LABS: Basophils Percent Auto 0.4 % (0.2-1.2); Eosinophils Absolute Auto 0.1 K/mm3 (0-0.3); Eosinophils Percent Auto 1.1 % (0-4.4); Hematocrit 39.1 % (37.0-47.0); Immature Granulocyte Absolute 0.01 K/mm3 (0.00-0.031); Immature Granulocyte Percent A 0.2 % (0-0.5); Lymphocytes Absolute Auto 2.12 K/mm3 (0.9-3.2); Lymphocytes Percent Auto 39.6 % (18.3-44.2); Mean Corpuscular HGB Conc 33.2 g/dl (32-36); Mean Corpuscular Volume 87.3 fl (80-100); Mean Platelet Volume 12.1 fl (7.4-10.4); Monocytes Absolute Auto 0.4 K/mm3 (0.1-0.6); Monocytes Percent Auto 7.7 % (2.6-8.5); Neutrophils Absolute Auto 2.7 K/mm3 (1.3-6.7); Platelet Count Result 159 k/mm3 (150-375); Red Blood Count 4.48 M/mm3 (4.2-5.4); Red Cell Distribution Width 13.1 % (11.5-14.5); White Blood Count 5.4 K/mm3 (4.5-10.0)
[2023-02-11 19:22] LABS: Alanine Aminotransferase 14 U/L (6-35); Albumin Level 3.7 g/dL (3.5-5.1); Alkaline Phosphatase 36 U/L (38-126); Anion Gap 6 mmol/L (8-16); Aspartate Amino Transferase 21 U/L (14-36); Bilirubin,Total 0.5 mg/dL (0.2-1.3); Blood Urea Nitrogen 14 mg/dL (7-17); Calcium 8.6 mg/dL (8.4-10.2); Carbon Dioxide 19 mmol/L (22-30); Chloride 109 mmol/L (98-107); Estimated CRCL calculation 135 ml/min; Estimated Glomerular Filt Rate > 60; Glucose 81 mg/dL (65-110); Lipase 76 U/L (23-300); Potassium 4.5 mmol/L (3.4-5.0); Sodium 134 mmol/L (137-145)
[2023-02-11 20:43] LABS: Appearance Urine Clear (Clear); Bilirubin Urine Negative (Negative); Blood Urine Negative (Negative); Color Urine Yellow (Yellow); Glucose Urine UA 1+ mg/dL (Negative); Ketones Urine 2+ mg/dL (Negative); Leukocyte Esterase Ur Negative LEU/UL (Negative); Nitrate Urine Negative (Negative); Protein Urine Negative (Negative); Specific Grav Ur 1.024 (1.001-1.035); Urobilinogen Urine 0.2 mg/dL (<2.0); pH Urine 5.5 (5.0-9.0)
[2023-02-11 20:48] LABS: Add Urine Microscopic? NO
[2023-02-11 22:43] VITALS: BP 122/78; PULSE 77; RESP 14; TEMP 36.9; O2SAT 98
== END 2023-02-11 22:45 | disposition home or self-care (01) ==
PROVIDERS: Emergency Provider Physician Assistant; PCP Physician Assistant
DX: O21.9 Vomiting of pregnancy, unspecified (principal); O99.281 Endocrine, nutritional and metabolic diseases complicating pregnancy, first trimester; E86.0 Dehydration; O99.511 Diseases of the respiratory system complicating pregnancy, first trimester; J45.909 Unspecified asthma, uncomplicated; O99.841 Bariatric surgery status complicating pregnancy, first trimester; Z86.718 Personal history of other venous thrombosis and embolism; Z86.711 Personal history of pulmonary embolism; Z86.2 Personal history of diseases of the blood and blood-forming organs and certain disorders involving the immune mechanism; Z3A.08 8 weeks gestation of pregnancy
CPT/HCPCS: 36415; 80053; 81003; 83690; 83735; 85025; 96361; 96374; 99284; J2765; J7030

== ENCOUNTER 2023-09-26 09:30 | Emergency (ER) | payer BC, MEDICAID, SELFPAY ==
[2023-09-26 09:44] VITALS: BP 120/65; PULSE 64; RESP 16; TEMP 36.2; O2SAT 100
[2023-09-26 09:46] VITALS: BP 120/65; PULSE 64; RESP 16; TEMP 36.2; O2SAT 100
--- NOTE | 2023-09-26 10:08 | ED.SKABFB ---
HPI - Skin/Abscess/Foreign Bdy General Chief complaint: Skin/Abscess/Foreign Body Stated complaint: rash Source: patient Mode of arrival: ambulatory Limitations: no limitations History of Present Illness HPI narrative: 38-year-old female presents to [facility] with complaints of burning, itchy flesh-colored fluid-filled rash to bilateral hands and feet for the past 5 days. Patient reports that she had a baby 2 weeks ago is currently . Patient denies history of skin allergies but reports that she has very sensitive skin. Patient has been applying [id number] hydrocortisone cream with little relief. Patient denies fever, body aches, chills, nausea vomiting or diarrhea. Patient denies erythema, purulent drainage, bleeding or bruising. MD complaint: rash Location: L hand, R hand, L foot and R foot Quality: burning and pruritic Relieving factors: none Exacerbating factors: none Context: none Associated symptoms: denies other symptoms Treatments prior to arrival: OTC topical medication Related Data Home Medications Medication Instructions Recorded Confirmed cholecalciferol (vitamin D3) 10 10 mcg PO DAILY 09/26/23 09/26/23 mcg (400 unit) chewable tablet enoxaparin 40 mg/0.4 mL mg 09/26/23 subcutaneous syringe ferrous sulfate 325 mg (65 mg 325 mg PO DAILY 09/26/23 09/26/23 iron) tablet vits 75-iron 28 mg-folic pkg PO 09/26/23 acid 800 mcg-omega3 440 mg oral pack Allergies Allergy/AdvReac Type Severity Reaction Status Date / Time latex Allergy Intermediate Rash Verified 09/26/23 09:45 adhesive tape Allergy Rash Verified 09/26/23 09:45 ferumoxytol [From Feraheme] AdvReac Severe Stopped Verified 09/26/23 09:45 Breathing Review of Systems Constitutional: Constitutional: Denies fatigue, Denies fever(s) and Denies weakness ENT: Denies vertigo and Denies dizziness Cardiovascular: Cardiovascular: Denies chest pain Respiratory: Respiratory: Denies cough, Denies dyspnea and Denies wheezing Gastrointestinal: Gastrointestinal: Denies diarrhea, Denies nausea and Denies vomiting Musculoskeletal: Musculoskeletal: Denies arthralgias, Denies joint swelling and Denies muscle cramps Integumentary/Breasts: Skin/Breast: Reports pruritus, Denies erythema, Reports rash and Denies skin ulcer Neurologic: Denies vertigo, Denies dizziness and Denies syncope PMFSH Past Medical History Medical History Anemia Asthma DVT (deep venous thrombosis) Head ache Ovarian cyst Pulmonary embolism Surgical History Surgical History History of anterior cruciate ligament surgery History of gastric surgery Gastric sleeve Family History Family History Father Family history of alcoholism Social History Social History Smoking status: Never smoker Alcohol intake: never Substance use: never Gender identity (if verbalized by the patient): Female Spiritual care concerns: No Agree to blood products: Yes Comments At time of signature, I agree with nursing past medical, surgical, social and family history. There is no relevant family history pertinent to the presenting complaint. Exam Const: General: healthy appearing and no acute distress Nutritional Appearance: well nourished Orientation/consciousness: patient oriented x3 Limitations: no limitations HENMT: Head: normal to inspection Throat: posterior oropharynx normal and uvula midline Eyes: Conjunctivae: conjunctivae normal Neck: Neck: normal visual inspection Resp: Effort & Inspection: normal respiratory effort and not labored Auscultation: clear to auscultation bilaterally, no crackles, no rales and no rhonchi Cardio: Rate: regular rate Rhythm: regular rhythm Skin: General skin exam: normal color
== END 2023-09-26 10:18 | disposition home or self-care (01) ==
PROVIDERS: Emergency Provider Nurse Practitioner Family; PCP Physician Assistant
DX: L30.1 Dyshidrosis [pompholyx] (principal); J45.909 Unspecified asthma, uncomplicated; Z86.718 Personal history of other venous thrombosis and embolism; Z86.711 Personal history of pulmonary embolism
CPT/HCPCS: 99213; G0463

== ENCOUNTER 2023-10-25 11:13 | Emergency (ER) | payer BC, SELFPAY ==
[2023-10-25 11:22] VITALS: BP 111/49; PULSE 57; RESP 18; TEMP 36.3; O2SAT 100
[2023-10-25 11:26] VITALS: BP 111/49; PULSE 57; RESP 18; TEMP 36.3; O2SAT 100
--- NOTE | 2023-10-25 11:27 | ED.SKABFB ---
HPI - Skin/Abscess/Foreign Bdy General Chief complaint: Skin/Abscess/Foreign Body Stated complaint: rash Time Seen by Provider: 10/25/23 11:28 Source: patient, RN notes reviewed and old records reviewed Mode of arrival: ambulatory Limitations: no limitations History of Present Illness HPI narrative: 38-year-old year old female presents to the [facility] with complaints of a rash to her abdomen, chest. Has a history of hives. States she has been trying to use strain send cream with no relief. Describes is being very itchy. Patient denies any new creams, ointments, lotions, detergents. Patient is breast feeding Onset (ago): day(s) (5) Related Data Home Medications Medication Instructions Recorded Confirmed cholecalciferol (vitamin D3) 10 10 mcg PO DAILY 09/26/23 09/26/23 mcg (400 unit) chewable tablet enoxaparin 40 mg/0.4 mL mg 09/26/23 subcutaneous syringe ferrous sulfate 325 mg (65 mg 325 mg PO DAILY 09/26/23 09/26/23 iron) tablet vits 75-iron 28 mg-folic pkg PO 09/26/23 acid 800 mcg-omega3 440 mg oral pack Allergies Allergy/AdvReac Type Severity Reaction Status Date / Time ferumoxytol [From Feraheme] Allergy Severe Stopped Verified 10/25/23 11:25 Breathing latex Allergy Intermediate Rash Verified 10/25/23 11:25 adhesive tape Allergy Rash Verified 10/25/23 11:25 Review of Systems Review of Systems: All systems reviewed & are unremarkable except as noted in HPI and below Constitutional: Constitutional: Reports no additional constitutional complaints Eyes: Eyes: Reports no additional eye complaints ENT: Reports system reviewed and no additional complaints, except as documented Cardiovascular: Cardiovascular: Reports no additional cardiovascular complaints, Denies chest pain and Denies dyspnea Respiratory: Respiratory: Reports no additional respiratory complaints, Denies chest congestion, Denies cough and Denies dyspnea Gastrointestinal: Gastrointestinal: Reports no additional gastrointestinal complaints, Denies abdominal pain, Denies nausea and Denies vomiting Musculoskeletal: Musculoskeletal: Reports no additional musculoskeletal complaints Integumentary/Breasts: Skin/Breast: Reports as per HPI and Reports rash Neurologic: Reports system reviewed and no additional complaints, except as documented Psychiatric: Psychiatric: Reports no additional psychiatric complaints Allergic/Immunologic: Allergic/Immunologic: Reports no additional allergic/immunologic complaints PMFSH Past Medical History Medical History Anemia Asthma DVT (deep venous thrombosis) Head ache Ovarian cyst Pulmonary embolism Surgical History Surgical History History of anterior cruciate ligament surgery History of gastric surgery Gastric sleeve Family History Family History Father Family history of alcoholism Social History Social History Smoking status: Never smoker Alcohol intake: never Substance use: never Gender identity (if verbalized by the patient): Female Spiritual care concerns: No Agree to blood products: Yes Comments At the time of my signature, I reviewed and agree with the nursing past medical, surgical, social, and family history. There is no relevant family history pertinent to the patient complaint. Exam Const: General: cooperative, healthy appearing, comfortable, no acute distress, well developed, alert and well nourished Nutritional Appearance: well nourished Orientation/consciousness: patient oriented x3 Limitations: no limitations HENMT: Head: normal to inspection Ears: hearing grossly normal bilaterally and external ears normal Face/Nose/Sinus: Normal external nose present, Normal nares present, Normal nasal mucous membranes and turbinates
== END 2023-10-25 11:44 | disposition home or self-care (01) ==
PROVIDERS: Emergency Provider Nurse Practitioner; PCP Physician Assistant
DX: L50.9 Urticaria, unspecified (principal); J45.909 Unspecified asthma, uncomplicated; Z86.718 Personal history of other venous thrombosis and embolism; Z86.711 Personal history of pulmonary embolism; D64.9 Anemia, unspecified
CPT/HCPCS: 99213; G0463

== ENCOUNTER 2023-11-17 11:29 | Outpatient (CLI) | payer BC, SELFPAY ==
--- NOTE | 2023-11-17 12:25 | PC.NURSE ---
In- 1135 Out- 1225 Reason for visit: has been diagnosed with failure to thrive, had an 8 day stay in [facility] and was not able to attempt during that time and now refuses the breast; mother desires pump flange fitting History: Mother was high risk during her for a clotting disorder; at delivery she had 'two 4th degree tears' that required surgical intervention and general anesthesia and a hemorrhage requiring a blood transfusion; mother states she did not get to see her for many hours after her surgery; when she did begin , infant was going to breast exclusively with one supplementation bottle in the hospital and exclusive at home; mother states it did take 3 weeks for her milk to come in and now has a consistent supply Infant History: was having little to no weight gain (only 4g gain at one ICP visit) and eventually was found to have lost 18% of her weight and was admitted to [facility] with a failure to thrive diagnosis; mother states she believed was feeding well at the breast as she was suckling for 15-20 minutes and then falling asleep, but eventually became very lethargic and wasn't even able to breastfeed; after 8 days in the hospital, had gained weight for 2 days in a row (15g one day and 20g the next day per mom) and was then discharged from the hospital; mother states she felt like she did not receive any help because they did not want the to burn any calories trying to breastfeed, they did tell mom that infant could try to go to breast if she has eaten her 6 prescribed fortified bottles; mom is fortifying her pumped breastmilk with formula as prescribed by her physician; is have about 4-5 wet diapers daily and only one stool every 5 days, stools have been very mucousy, green/yellow and watery; mother states that Dr. Waite is aware and says this may be normal, but has referred baby to GI at [facility] Observations: was fussy and hungry when they arrived; mother appropriately applied her nipple shield and positioned to latch; was very fussy and inconsolable as we tried to latch; mother states is this fussy most of the day, not even seeming calm or satisfied right after feedings; mother feels infant may be exhibiting signs of pain; mother states that in the hospital, they did not seem to be concerned about spitting up (as soon as she is laid flat after the feeding, mother states it is projectile and seems to be the entire feeding) or the fussiness/inconsolability of baby; Dr. Waite has seen baby and prescribed pepcid for reflux and has referred to the GI specialist at [facility]; mother states infant has had an upper GI and they found that baby has a tight and slow emptying pyloric sphincter; we were not able to latch , despite repeated attempts, trying to calm before offering the breast, trying to give the bottle and then switch to the nipple shield, and trying to latch after she was finished with her bottle; took 3 ounces of pumped breastmilk and did not spit up during the appointment, she did continue to fuss off and on and suck on her pacifier while mom was pumping Assisted mother to use her Spectra pump, she has been pumping 3-4 ounces at a time (usually 20 minutes per session); mother has been using the 17mm flange size, but has been experimenting with different sizes and states that they all hurt ; fitted mom for a 24mm flange and encouraged good nipple care after each pumping session; mother states after the initial few minutes with the pump, the pain dissipates; encouraged mother to continue with the 24mm flanges for a few pumping sessions to see if she notices improvement with her nipple pain; mother did pump 5 ounces which was more than her usual 3 ounces with the 17mm flanges and she was encouraged that
== END 2023-11-17 11:30 | disposition home or self-care (01) ==
LOC: ANHOBOP 11:30
PROVIDERS: PCP Physician Assistant; Visit Provider Pediatrics
DX: Z39.1 Encounter for care and examination of lactating mother (principal)
CPT/HCPCS: 99202; G0463

== ENCOUNTER 2024-02-02 08:05 | Emergency (ER) | payer BC, SELFPAY ==
[2024-02-02 08:17] VITALS: BP 107/49; PULSE 66; RESP 16; TEMP 36.2; O2SAT 100
[2024-02-02 08:19] VITALS: BP 107/49; PULSE 66; RESP 16; TEMP 36.2; O2SAT 100
--- NOTE | 2024-02-02 08:19 | ED.SKABFB ---
HPI - Skin/Abscess/Foreign Bdy General Chief complaint: Skin/Abscess/Foreign Body Stated complaint: rash Source: patient Mode of arrival: ambulatory Limitations: no limitations History of Present Illness HPI narrative: 38-year-old female presented for complaint of an itchy red rash to the left upper arm for 2 weeks. Since then she has been seen by basin tender, vocal music instructor, PCP, and Urgent Care, has tried multiple steroid creams, oral steroids, and started on antibiotic yesterday. Since yesterday the left arm has become more red, swollen, warm and tender. The left arm is tight and has decreased range of motion as a result swelling. She also reports at spreading to the right upper arm, left chest, neck and chin. She is unable to take antihistamine as she is currently . Denies lip, tongue, or throat swelling, shortness of breath or wheezing. Denies changes to soap, detergent, lotion, or any other exposures. No one else in the house or any contacts with similar symptoms. Related Data Home Medications Medication Instructions Recorded Confirmed cholecalciferol (vitamin D3) 10 10 mcg PO DAILY 09/26/23 02/02/24 mcg (400 unit) chewable tablet ferrous sulfate 325 mg (65 mg 325 mg PO DAILY 09/26/23 02/02/24 iron) tablet vits 75-iron 28 mg-folic 1 pkg PO DIRECTED 09/26/23 02/02/24 acid 800 mcg-omega3 440 mg oral pack ampicillin 500 mg capsule 500 mg DIRECTED 02/02/24 02/02/24 Allergies Allergy/AdvReac Type Severity Reaction Status Date / Time ferumoxytol [From Feraheme] Allergy Severe Stopped Verified 10/25/23 11:25 Breathing latex Allergy Intermediate Rash Verified 10/25/23 11:25 adhesive tape Allergy Rash Verified 10/25/23 11:25 Review of Systems Review of Systems: CONSTITUTIONAL: Denies body aches, fever, chills, or sweats. EYES: Denies visual changes, redness, or discharge. ENT: Denies rhinorrhea, congestion CARDIOVASCULAR: Denies chest pain, palpitations, or edema. RESPIRATORY: Denies cough or dyspnea. GASTROINTESTINAL: Denies abdominal pain, nausea, vomiting, or diarrhea. SKIN: reports rash to arms and chest, neck and face MUSCULOSKELETAL: Denies back pain, joint pain, or myalgia. NEUROLOGIC: Denies headache, numbness, tingling, or weakness. [facility] Past Medical History Medical History Anemia Asthma DVT (deep venous thrombosis) Head ache Ovarian cyst Pulmonary embolism Surgical History Surgical History History of anterior cruciate ligament surgery History of gastric surgery Gastric sleeve Family History Family History Father Family history of alcoholism Social History Social History Smoking status: Never smoker Alcohol intake: never Substance use: never Gender identity (if verbalized by the patient): Female Spiritual care concerns: No Agree to blood products: Yes Comments At time of signature, I have reviewed and agree with nursing past medical, surgical, social and family history unless otherwise noted. Please see nursing chart for further information. There is no relevant family history pertinent to the presenting complaint Exam Narrative: GENERAL: Well-appearing EYES: conjunctivae clear, and EOMI. ENT: Mucous membranes moist. Oropharynx without edema, erythema or lesions. NECK: Supple. No lymphadenopathy CHEST: Clear to auscultation. HEART: Regular rate and rhythm. SKIN: Warm, dry. Left upper arm extending to mid forearm with area of swelling, erythema and warmth [id number]; skin is dry/sand paper appearance. No drainage, nontender. Scattered areas of patchy erythema to distal LUE, Left chest and right upper arm. Radial pulses strong and equal bilaterally. NEURO: Alert and oriented x3. Course Course
== END 2024-02-02 08:55 | disposition home or self-care (01) ==
PROVIDERS: Emergency Provider Nurse Practitioner Family; PCP Physician Assistant
DX: L03.114 Cellulitis of left upper limb (principal); D64.9 Anemia, unspecified; J45.909 Unspecified asthma, uncomplicated; Z86.711 Personal history of pulmonary embolism; Z86.718 Personal history of other venous thrombosis and embolism; Z98.84 Bariatric surgery status
CPT/HCPCS: 99213; G0463

== ENCOUNTER 2024-11-04 10:16 | Emergency (ER) | payer BC, SELFPAY ==
--- NOTE | 2024-11-04 10:19 | ED_ITS ---
HPI - URI/Sore Throat General Chief Complaint: Skin/Abscess/Foreign Body Stated Complaint: Soar throat, rash, ear pain Time Seen by Provider: 11/04/24 10:19 Source: patient Mode of arrival: ambulatory Limitations: no limitations History of Present Illness HPI Narrative: Azucena is a 39-year-old female patient presenting to the clinic today with complaints a sore throat, rash, and right ear pain times. She reports sore throat has been going on for 3 weeks. Seen her PCP 2 weeks ago and was prescribed amoxicillin for 10 days. She finished the amoxicillin but still has a sore throat. Reports that the throat and tongue is burning/tingling. Right ear pain started over the last 3 days. Also reporting a rash to bilateral hands is itchy, burning, and blistered x 5 days. States had a very low-grade temp of 99.8F. History of eczema. No drooling or difficulty swallowing. Related Data Home Medications ?Medication ?Instructions ?Recorded ?Confirmed ?Last Taken ?Type cholecalciferol (vitamin D3) 10 10 mcg PO DAILY 09/26/23 02/02/24 Unknown History mcg (400 unit) chewable tablet ferrous sulfate 325 mg (65 mg 325 mg PO DAILY 09/26/23 02/02/24 Unknown History iron) tablet vits 75-iron 28 mg-folic 1 pkg PO DIRECTED 09/26/23 02/02/24 Unknown History acid 800 mcg-omega3 440 mg oral pack folic acid 400 mcg tablet 0.4 mg PO DAILY 11/01/24 11/01/24 Unknown History Allergies Allergy/AdvReac Type Severity Reaction Status Date / Time ferumoxytol (From Feraheme) Allergy Severe Stopped Verified 11/04/24 10:30 Breathing latex Allergy Intermediate Rash Verified 11/04/24 10:30 adhesive tape Allergy Rash Verified 11/04/24 10:30 Review of Systems Review of Systems: Pertinent positives per HPI. Patient denies any fever, chills, headache, visual changes, dizziness, cough, shortness of breath, chest pain, palpitations, nausea, vomiting, diarrhea, constipation, abdominal pain, or any urinary issues. PMFSH Past Medical History Medical History Atopic dermatitis Anemia Ovarian cyst DVT (deep venous thrombosis) Asthma Head ache Pulmonary embolism Surgical History Surgical History History of anterior cruciate ligament surgery History of gastric surgery Gastric sleeve Family History Family History Father Family history of alcoholism Social History Social History Social History: 10/26/24 Very confident with medical forms Smoking status: Never smoker Alcohol intake: never Substance use: never Do You Feel Safe in your Home?: Yes Lack of Transportation: No Lack of Food: Never True Current Housing: I Have Housing Concerned About Future Housing: No Difficulty Paying Gas/Electric Bills: No Difficulty Paying for Meds: YES Currently Unemployed: No Education: Bachelor's Degree Difficulty w/ Childcare or Family Care: YES Gender identity (if verbalized by the patient): Female Spiritual care concerns: No Agree to blood products: Yes Comments At the time of my signature, I reviewed and agree with the nursing past medical, surgical, social, and family history. There is no relevant family history pertinent to the patient complaint. Exam Narrative: General: Well-developed, well nourished, in no apparent distress Head: Normocephalic, atraumatic Eyes: Pupils equally round and reactive to light bilaterally, EOM intact, sclera and conjunctive clear, no discharge, lids normal Ears: Unable to visualize right TM due to cerumen, ear irrigation was, left ear canal ceruminous, no drainage, grossly hearing normal. Nose: Nares patent, no discharge, no inflammation, no sinus tenderness. Mouth: Oral pharynx mild beefy red, yellow plaque-like lesion to the tongue, no ulcerated lesions noted, no masses, good dentition, MMM. Neck: Supple, trachea midline, enlargement of anterior cervical nodes, no thyroid masses or goiter palpable. Cardio: Regular rate and rhythm, s1 and s2 normal, no murmur appreciated. Resp: Clear to auscultation bilaterally, no rhonchi, rales, wheezing or rubs Integumentary: [place], warm, and dry, red, raised, blistered, the painful, itchy rash to the hands and feet Course Course Emergency Course: Portions of this record may have been created with voice recognition software. Level of Care: Express Care Visit Vital Signs Vital signs: Vital Signs Temperature 36.3 C L 11/04/24 10:30 Pulse Rate 83 11/04/24 10:30 Respiratory Rate 18 11/04/24 10:30 Blood Pressure 97/76 L 11/04/24 10:30 Pulse Oximetry 100 11/04/24 10:30 Oxygen Delivery Room Air 11/04/24 10:30 Temperature 36.3 C L 11/04/24 10:30 Pulse Rate 83 11/04/24 10:30 Respiratory Rate 18 11/04/24 10:30 Blood Pressure 97/76 L 11/04/24 10:30 Pulse Oximetry 100 11/04/24 10:30 Oxygen Delivery Room Air 11/04/24 10:30 Vital signs reviewed Procedures Ear Wax Removal Right Ear: Ear Wax Removal Date: 11/04/24 Cerumenolytic Used: other (Debrox) Results: Re-examined: some cerumen remains TM Examination: TM(s) intact, normal appearance Ear Canal Exam: atraumatic Patient Tolerated Procedure: well and no complications Complications: no problems Technique: ear canal irrigated and ear canal curetted Additional Comments: Verbal consent obtained for ear irrigation. Risk and benefits explained and patient voiced understanding. Ear irrigation performed using an elephant ear and spray water bottle. Mixture of 1/2 peroxide 1/2 water used to irrigate ear canal. Cerumen impaction cleared and TM visualized without redness. Lighted curette was used to remove cerumen from the distal external canal Grossly hearing normal. Patient tolerated procedure well MDM - URI/Sore Throat MDM Narrative Medical decision making narrative: At the time of visit patient is resting comfortably on the exam table. Patient appears to be nontoxic. Labs: Strep test was negative in the clinic today. We will send strep for culture. Procedures: Ear irrigation was performed to the right ear canal successfully. Patient tolerated well. Plan: No obvious sign SJS. I suspect patient has oral candidiasis/pharyngitis, right cerumen impaction, and a topic dermatitis. Supportive measures were discussed with the patient and they voiced understanding discharge instructions and agrees to treatment plan. Return precautions reviewed Differential Diagnosis Differential diagnosis: Likely upper respiratory infection, otitis media, sinusitis, viral infection, bronchitis, influenza, pharyngitis and other (COVID, [id number], bacterial skin infection, strep pharyngitis) Lab Data Labs: Lab Results 11/04/24 Range/Units 10:48 POC Grp A Strep Screen Negative (Negative) Discharge Plan Discharge Clinical Impression: Oral thrush, Dermatitis Cerumen impaction Qualifiers: Laterality: right Qualified Code(s): H61.21 - Impacted cerumen, right ear Patient Disposition: Home Condition: Stable Instructions: Antibiotic Form, Oral Candidiasis (ED), Earache (ED), Dermatitis (ED) Additional Instructions: Ear irrigation of the right ear was performed successfully in the clinic today Strep test was negative in the clinic today. We will strep for culture. May take Tylenol/Motrin as needed for pain or fever Take nystatin swish and swallow as directed Apply triamcinolone cream to your hands as directed Follow-up with your conductor and engineer if symptoms do not improve Follow-up with your primary care provider and 3-5 days if symptoms persist Patient Language: Italian Prescriptions: New triamcinolone acetonide 0.1 % cream 1 applic topical BID 7 Days Qty: 30 0RF nystatin 100,000 unit/mL suspension 5 ml PO QID 14 Days Qty: 280 0RF Rx Instructions: swish and swallow No Action ferrous sulfate 325 mg (65 mg iron) Tablet 325 mg PO DAILY cholecalciferol (vitamin D3) 10 mcg (400 unit) Tablet,Chewable 10 mcg PO DAILY Daily [phone] mg-mcg-mg Combo Pack 1 pkg PO DIRECTED folic acid 400 mcg tablet 0.4 mg PO DAILY Follow-up/Referrals: PHYSICIAN,END TOUCHING MACHINE OPERATOR [Non-Staff] - Time of Disposition: 11:22 Quality NIHSS Nursing Documentation ED NIHSS nursing documentation: reviewed/agree
[2024-11-04 10:30] VITALS: BP 97/76; PULSE 83; RESP 18; TEMP 36.3; O2SAT 100
[2024-11-04] MEDS: CARBAMIDE PEROXIDE 6.5% OT SOLN 15 ML BTL 5 DROP RIGHT EAR (10:40)
[2024-11-04 10:51] LABS: EDSTREPNEGPOS1 Negative (Negative)
[2024-11-04] MEDS: HYDROGEN PEROXIDE 3% SOLN(*SP) 473 ML BOTTLE 30 ML IRRIGATION (11:06)
== END 2024-11-04 11:26 | disposition home or self-care (01) ==
PROVIDERS: Emergency Provider Nurse Practitioner Family; PCP Physician Assistant Medical
DX: B37.0 Candidal stomatitis (principal); L30.9 Dermatitis, unspecified; H61.21 Impacted cerumen, right ear
CPT/HCPCS: 69210; 87081; 87880; 99213; A9270; G0463